=== PATIENT | female | born 1995 | race Caucasian/White ===

== ENCOUNTER 2018-02-09 22:08 | Emergency (ER) | payer OTHER ==
[~2018-02-09] VITALS: Ht 157.5 cm; Wt 58.4 kg
[2018-02-09 22:09] VITALS: BP 132/87
[2018-02-09] MEDS ORDERED: LIDOCAINE-MPF 1%, 5ML ONE (22:46)
[2018-02-09] MEDS ORDERED: AZITHROMYCIN 250 MG TABLET ONE (22:46)
[2018-02-09] MEDS ORDERED: CEFTRIAXONE 250 MG ONE (22:46)
[2018-02-09 22:57] LABS: HCG UR SG 1.023 (1.003-1.030)
[2018-02-09] MEDS ORDERED: CEFTRIAXONE 250 MG IM ONE (23:00)
[2018-02-09] MEDS ORDERED: AZITHROMYCIN 500 MG TABLET PO ONE (23:00)
== END 2018-02-09 23:15 | disposition home or self-care (01) ==
LOC: ED 22:28
DX: A64 Unspecified sexually transmitted disease (principal)
CPT/HCPCS: 81025; 87491; 87591; 96372; 99284; J0696